=== PATIENT | female | born 1940 | race Caucasian/White ===

== ENCOUNTER 2025-07-23 07:58 | Emergency (ER) | payer MEDICARE, BC, SELFPAY ==
[2025-07-23 08:14] VITALS: BP 212/93; PULSE 97; RESP 17; TEMP 36.7; O2SAT 100; BMI 24.7
--- NOTE | 2025-07-23 08:16 | XR_ITS ---
Examination: CT abdomen and pelvis without contrast. Coronal 3-D reconstructions. Sagittal 2-D reconstructions. Date and time of exam: 07/23/2025 at 8:40 2:00 a.m. CTDI: vol (mGy): 6.21 DLP: (mGycm): 321 INDICATION: Lower abdominal and pelvic pain for the last 1 day Comparison study 12/28/2023 Technique: Axial images of the abdomen have been obtained, 3 mm slice thickness Intravenous contrast material has not been administered. Low dose protocols were performed. One or more of the following dose reduction techniques were used; automated exposure control, adjustment of the mA and/or KV according to patient size, use of iterative reconstruction technique. Findings: In the anterior base of the right lower lobe there is a very tiny 3 mm nodule noted, this is perfectly stable and unchanged since the prior CT and almost certainly is a benign finding. The remainder of the lower lobes appear clear. In the spine at L3-4 there is moderate disc space narrowing and vacuum phenomenon. On the axial images there is a diffuse circumferential disc bulge, this is most prominent posterolaterally on the left side. This appears to create 6 significant narrowing of the left neuroforamen at this level. There is also a moderate diffuse annular disc bulge at L4-5 with prominent DJD in the posterior facet joints. At L5-S1 there is very prominent DJD in the posterior facet joints, there is moderate disc space narrowing at there is a mild midline disc protrusion. Surgical clips are seen in the gallbladder fossa. There is moderate diffuse enlargement of the liver. Spleen appears all right, adrenal glands appear all right. The entire pancreas is significantly smaller than normal suggesting at least moderate pancreatic atrophy. There is a tiny 2 mm diameter calcification located in the region of the head of the pancreas. This is unchanged since the previous CT, its possible this could lie within the distal common bile duct. No significant abnormalities are seen in the retroperitoneum, CT appearance of both kidneys is essentially unremarkable. There is an extremely tiny umbilical hernia containing 1 extremely tiny loop of bowel with a small calcification within it. This is perfectly stable and unchanged since the last CT. There is moderate diverticulosis seen throughout the sigmoid colon The 4 cm long area of annular intramural thickening of the sigmoid colon seen on the prior study is no longer identified, has that related to a muscular contraction on the previous CT. Small bowel loops appear all right. The uterus appears to be absent. There is mild but definite DJD in the right hip joint. There is end-stage DJD in the left hip joint with [id number] contact, erosion of the acetabulum and flattening and erosion of the femoral head with multiple subchondral degenerative cysts in the femoral head. Again noted is a moderately prominent pericardial effusion unchanged since the prior CT IMPRESSION: 1. Very tiny 4 mm noncalcified nodule in the base of the right lower lobe is unchanged from the prior CT almost certainly benign 2 fairly prominent pericardial effusion is again seen and its stable and unchanged 3 there appears to be diffuse enlargement of the liver. I do not see definite fatty infiltration on today's CT exam. Ultrasound might be a little bit more sensitive for this. 4. Status post cholecystectomy, status post hysterectomy in the past 5: Diverticulosis throughout the sigmoid colon, in the area of annular soft tissue thickening in the mid-distal sigmoid colon on the previous study appears normal on today's exam. 6. There appears to be diffuse pancreatic atrophy unchanged. There is a tiny calcification in the region of the distal common bile duct or head of the pancreas, this is unchanged since the prior CT Next number multilevel DJD in the lumbosacral spine Next number major end-stage DJD in the right hip joint and this is unchanged since the previous CT
--- NOTE | 2025-07-23 08:17 | PD.EDRME ---
Rapid Medical Screening Exam E Arrival date/time: 07/23/25 07:58 85-year-old female presents to the emergency department for complaints of dysuria and pelvic pain Chief Complaint: Urogenital-Female Vital signs: Vital Signs Temperature 98.1 F 07/23/25 08:14 Pulse Rate 97 07/23/25 08:14 Respiratory Rate 17 07/23/25 08:14 Blood Pressure 212/93 H 07/23/25 08:14 Pulse Oximetry (%) 100 07/23/25 08:14 Oxygen Delivery Method Room Air 07/23/25 08:14 Vital signs reviewed by provider: Yes Exam: On exam patient appears to be in pain Clinical Impression: Lab work and imaging ordered
[2025-07-23 08:41] VITALS: PULSE 69
--- NOTE | 2025-07-23 08:44 | PD.EDFMALE ---
ED Female Urogenital RME/HPI General Chief complaint: Urogenital-Female Stated complaint: Painful urination since last night Time Seen by Provider: 07/23/25 08:39 Source: patient Arrival date/time: 07/23/25 07:58 Mode of arrival: ambulatory Limitations: no limitations RME / HPI Complaint: dysuria and UTI Onset (ago): day(s) Location: suprapubic Radiation: non-radiating Severity: moderate Severity scale (1-10): 5 Quality: dull and burning Duration: constant Relieving factors: none Exacerbating factors: none Urinary Symptoms: dysuria, urgency and frequency Sexual activity: no Associated symptoms: denies other symptoms RME / HPI Narrative: 07/23/25 07:58 85-year-old female presents to the emergency department for complaints of dysuria and pelvic pain Exam: On exam patient appears to be in pain Impression: Lab work and imaging ordered Related Data Home Medications ?Medication ?Instructions ?Recorded ?Confirmed estradiol 1 mg tablet 1 tab PO QDAY 04/16/22 08/27/23 hydrochlorothiazide 25 mg tablet 1 tab PO QDAY 04/16/22 08/27/23 levothyroxine 25 mcg tablet 1 tab PO QDAY 04/16/22 08/27/23 mirtazapine 15 mg tablet 1 tab PO HS 04/16/22 08/27/23 olmesartan 40 mg tablet 1 tab PO QDAY 04/16/22 08/27/23 Previous Rx's ?Medication ?Instructions ?Recorded pantoprazole 20 mg tablet,delayed 20 mg PO QDAY #20 tabs 08/27/23 release (Protonix) pantoprazole 40 mg tablet,delayed 40 mg PO QDAY #20 tabs 10/31/23 release (Protonix) pantoprazole 40 mg tablet,delayed 40 mg PO QDAY #20 tabs 12/28/23 release (Protonix) sennosides 8.6 mg-docusate sodium 1 tab-cap PO QDAY PRN constipation 12/28/23 50 mg tablet (Colace 2-In-1) #20 tabs Allergies Allergy/AdvReac Type Severity Reaction Status Date / Time No Known Allergies Allergy Verified 07/23/25 08:02 Review of Systems Review of Systems Systems Reviewed: All systems reviewed, normal except as documented Past Medical History Past Medical History NEUROLOGIC: Negative Neurological Disorders or Seizures CARDIAC: Positive Angina, Hypercholesterolemia, Edema and Hypertension; Negative Cardiac Disorders or Congestive Heart Failure RESPIRATORY: Positive Pneumonia; Negative Chronic Obstructive Pulmonary Disease (COPD) or Asthma GASTROINTESTINAL: Positive Gastrointestinal Disorders, Gall Bladder Disease and Diverticulosis GENITOURINARY: Positive Genitourinary Disorders; Negative Renal Disease REPRODUCTIVE: Positive Previous Pregnancies MUSCULOSKELETAL: Positive Musculoskeletal Disorders, Arthritis, Osteoporosis, Degenerative Disk Disease and Fractures ENDOCRINE: Positive Endocrine Disorders and Diabetes Mellitus Type 2; Negative Diabetes Mellitus Type 1 HEMATOLOGIC: Negative Blood Disorders or Sickle Cell Disease PSYCHO/SOCIAL: Positive Depression OTHER HISTORY: Positive Chicken Pox, Measles and Mumps; Negative Autoimmune Disease, Blood Transfusions, Blood Transfusion Reaction or Anesthesia Reactions Family History FAMILY HISTORY: Positive Family Respiratory Disorders, Family Cardiac Disorders and Family Cancer; Negative Family Psychiatric Problems, Family Gastrointestinal Problems, Family Surgery or Family Anesthesia Reaction Surgical History SURGICAL: Positive Joint Replacement, Open Reduction Internal Fixation and Hysterectomy Social History SMOKING STATUS: Never smoker SUBSTANCE USE: does not use ED Exam General Limitations: Present no limitations General appearance: Present alert and in no apparent distress Head Head exam: Present atraumatic Eye Eye exam: Present normal appearance, PERRL and EOMI ENT ENT exam: Present normal exam, normal oropharynx and mucous membranes moist Neck Neck exam: Present normal inspection, full ROM and trachea midline Chest Chest inspection: Present normal inspection and symmetric chest wall rise Respiratory Respiratory exam: Present normal lung sounds bilaterally Cardiovascular Cardiovascular exam: Present regular rate, normal rhythm and normal heart sounds Abdominal Exam Abdominal exam: Present soft, tenderness (SL TTP SUPRAPUBIC AREA) and normal bowel sounds Extremities Exam Extremities exam: Present normal inspection and full ROM Back Exam Back exam: Present normal inspection and full ROM Neurological Exam Neurological exam: Present alert, oriented X3 and CN II-XII intact Psychiatric Psychiatric exam: Present normal affect and normal mood Skin Skin exam: Present warm, dry, intact and normal color Course Quality Measures none Orders Category Date Time Status Surg Nurse NOW Care 07/23/25 08:41 Completed Continuous Pulse Oximetry NOW Care 07/23/25 08:41 Completed Insert IV NOW Care 07/23/25 08:[address] abdomen pelvis wo con Stat Exams 07/23/25 08:16 Completed CBC Stat Lab 07/23/25 08:30 Completed Comprehensive Metabolic Panel Stat Lab 07/23/25 08:30 Completed UA, C/S IF [Urinalysis, C/S if Indicated] Stat Lab 07/23/25 09:55 Completed Phenazopyridine HCl [Pyridium] Med 07/23/25 08:41 Discontinued 200 mg PO X1 ONE Sodium Chloride 0.9% 1000 ml [Ns] 1,000 ml Med 07/23/25 08:41 Discontinued IV 999 mls/hr Sodium Chloride 0.9% 1000 ml [Ns] 1,000 ml Med 07/23/25 10:31 Discontinued IV 999 mls/hr [id number] [Rocephin] 2 gm Med 07/23/25 08:41 Discontinued SODIUM CHLORIDE 0.9% (Popper) [Ns 0.9% (P)] 50 ml IV X1 Vital Signs Vital signs: Vital Signs Temperature 98.1 F 07/23/25 08:14 Pulse Rate 97 07/23/25 08:14 Respiratory Rate 17 07/23/25 08:14 Blood Pressure 212/93 H 07/23/25 08:14 Pulse Oximetry (%) 100 07/23/25 08:14 Oxygen Delivery Method Room Air 07/23/25 08:14 Urogenital - Female Patient data External records reviewed:: [facility] previous records Clinical information provided by:: patient Social determinants that could affect healthcare access:: none Patient has the following chronic illnesses:: Pericardial effusion which is chronic, DJD How is presenting disease/condition affected by chronic disease/condition?: uneffected by Evaluation data The following diagnostics were reviewed and interpreted by me:: lab results and radiology exam(s) Lab and/or radiology exams considered but not ordered:: UA was negative for acute infection. CT scan of the abdomen and pelvis showed a chronic pericardial effusion, diverticulosis and DJD but no acute changes from previously. Interpretation Summary: N/A Medications / Prescriptions Medications or Prescriptions considered but not ordered:: AMOXACILLIN Medication administrations:: Medication Administration History Discontinued Medications Sodium Chloride (Ns) 1,000 mls @ 999 mls/hr IV .Q1H1M ONE Stop: 07/23/25 09:41 Last Infusion: 07/23/25 13:19 Dose: Infused Documented By: Admin: 07/23/25 09:09 Dose: 999 mls/hr Documented By: ANJELICA Ceftriaxone Sodium 2 gm/ (Sodium Chloride) 50 mls @ 100 mls/hr IV X1 ONE Stop: 07/23/25 09:10 Last Infusion: 07/23/25 10:41 Dose: Infused Documented By: Admin: 07/23/25 09:08 Dose: 100 mls/hr Documented By: ANJELICA Sodium Chloride (Ns) 1,000 mls @ 999 mls/hr IV .Q1H1M ONE Stop: 07/23/25 11:31 Last Infusion: 07/23/25 13:19 Dose: Infused Documented By: Admin: 07/23/25 10:44 Dose: 999 mls/hr Documented By: ANJELICA Phenazopyridine HCl (Phenazopyridine Hcl 100 Mg Tablet) 200 mg PO X1 ONE Stop: 07/23/25 08:42 Last Admin: 07/23/25 09:08 Dose: 200 mg Documented By: ANJELICA ABOVE Consultations Consultation(s) initiated? (list below): No Diagnosis Urogenital Female Differential Diagnosis: urinary tract infection, bacterial vaginosis, trichomoniasis, cervicitis, ovarian cyst, ruptured ovarian cyst, cystitis and dysmenorrhea Most likely diagnosis given after review of the tests above:: Differential diagnosis is UTI, atrophic vaginitis, diverticulitis. Admission Indicated Admission indicated?: not indicated Admission Request Was there a request for admission?: No Disposition Plan Disposition Plan: Discharge Discharge Attestation Discharge Attestation: The patient and all family members were given an opportunity to ask questions and understood the discharge instructions. Discharge instructions specifically effects, indications for sooner follow up or return to the emergency department, and the expected course of current diagnosis. Patient condition: Stable Discharge Plan Plan Patient Disposition: HOME (Self Care) Patient condition on transfer: Stable Prescriptions/Referrals Prescriptions/Med Rec: No Action levothyroxine 25 mcg tablet 1 tab PO QDAY Patient Comments: GENERIC FOR SYNTHROID. TAKE 1 TABLET BY MOUTH EVERY DAY estradiol 1 mg tablet 1 tab PO QDAY Patient Comments: TAKE 1 TABLET BY MOUTH EVERY DAY hydrochlorothiazide 25 mg tablet 1 tab PO QDAY Patient Comments: TAKE 1 TABLET BY MOUTH EVERY DAY mirtazapine 15 mg tablet 1 tab PO HS Patient Comments: GENERIC FOR REMERON. TAKE 1 TABLET BY MOUTH AT BEDTIME olmesartan 40 mg tablet 1 tab PO QDAY Patient Comments: TAKE 1 TABLET BY MOUTH EVERY DAY pantoprazole [Protonix] 20 mg tablet,delayed release (DR/EC) 20 mg PO QDAY Qty: 20 0RF pantoprazole [Protonix] 40 mg tablet,delayed release (DR/EC) 40 mg PO QDAY Qty: 20 0RF pantoprazole [Protonix] 40 mg tablet,delayed release (DR/EC) 40 mg PO QDAY Qty: 20 0RF sennosides-docusate sodium [Colace 2-In-1] 8.6-50 mg tablet 1 tab-cap PO QDAY PRN (Reason: constipation) Qty: 20 0RF Referrals: No Primary/Family,Physician [Primary Care Provider] - In 1 week Problem List Clinical Impression: Abdominal pain, Chronic pericardial effusion, Diverticulosis, DJD (degenerative joint disease) Patient/Caregiver Discharge Instructions Discharge Activity: activity as tolerated Education Materials: Abdominal Pain Additional Instructions: Follow-up with your doctor in 1 to 2 days. There was no evidence of a urinary tract infection although I did give you IV antibiotics. If the pain increases further and you are concerned please return to the emergency department for reevaluation Print Language: Finnish Stand Alone Forms: Mamie Award Info., Patient Portal Info Letter
[2025-07-23 08:49] LABS: Basophils # (Auto) 0.0 Thou/mm3 (0.0-0.2); Basophils % (Auto) 0 % (0-2.5); Eosinophils # (Auto) 0.1 Thou/mm3 (0.0-0.5); Eosinophils % (Auto) 1 % (0-10); Hematocrit 40.7 % (36.0-46.0); Hemoglobin 13.9 g/dL (12.0-16.0); Immature Granulocytes Auto 0.02 Thou/mm3 (0.00-0.00); Lymphocytes # (Auto) 1.5 Thou/mm3 (1.0-4.8); Lymphocytes % (Auto) 21 % (10-50); Mean Corpuscular HGB Conc 34.2 g/dl (31.0-37.0); Mean Corpuscular Hemoglobin 27.9 pg (25.0-35.0); Mean Corpuscular Volume 82 fL (80-100); Monocytes # (Auto) 0.7 Thou/mm3 (0.0-0.8); Monocytes % (Auto) 10 % (0-12); Neutrophils # (Auto) 4.6 Thou/mm3 (1.8-7.7); Neutrophils % (Auto) 67 % (37-80); Nucleated Red Blood Cell # 0.00 Thou/mm3 (0.00-0.00); Nucleated Red Blood Cell % 0 /100 WBC (0); Platelet Count 257 Thou/mm3 (140-440); RDW Standard Deviation 37.8 fL (36.4-46.3); Red Blood Count 4.99 Miln/mm3 (4.00-5.20); White Blood Count 6.8 Thou/mm3 (3.6-11.0)
[2025-07-23 09:05] LABS: Alanine Aminotransferase 11 U/L (10-49); Albumin, Serum 4.7 gm/dL (3.4-4.8); Albumin/Globulin Ratio 1.3 (1.2-2.2); Alkaline Phosphatase 78 U/L (46-116); Anion Gap 11 (7-16); Aspartate Amino Transferase 21 U/L (0-34); BUN/Creatinine Ratio 33 Ratio (12-20); Bilirubin,Total 0.3 mg/dL (0.3-1.2); Blood Urea Nitrogen 59 mg/dL (9-23); Calcium 9.6 mg/dL (8.3-10.6); Calcium (Corrected) 9.6 mg/dL (8.5-10.1); Carbon Dioxide 32.6 mMol/L (20.0-31.0); Chloride 82 mMol/L (98-107); Creatinine (Component) 1.8 mg/dL (0.6-1.3); Estimated Creatinine Clearance 18.4 mL/min (>60); Globulin 3.5 gm/dL (2.3-3.5); Glucose 274 mg/dL (74-106); Osmolality,Calculated 279 (275-295); Potassium 3.6 mMol/L (3.4-5.1); Sodium 126 mMol/L (136-145); Total Protein 8.2 gm/dL (5.7-8.2); eGFR 27 See Note
[2025-07-23] MEDS: PHENAZOPYRIDINE HCL 100 MG TABLET 200 MG PO (09:08)
[2025-07-23] MEDS: cefTRIAXone 2 GM in SODIUM CHLORIDE 0.9% (Popper) 50 ML IV (09:08)
[2025-07-23] MEDS: SODIUM CHLORIDE 0.9% 1000 ML 1,000 ML 999 ML IV ×2 (09:09→10:44)
[2025-07-23 09:15] VITALS: BP 160/78; PULSE 73; RESP 16; TEMP 37.2; O2SAT 97
[2025-07-23 10:08] LABS: Collection Type, Urine Clean Catch
[2025-07-23 10:24] LABS: Bacteria,Urine Rare; Bilirubin,Urine Negative (Negative); Blood,Urine Negative (Negative); Clarity,Urine Clear (Clear/Hazy); Color,Urine Lt-Yellow (Lt Yel-Yel); Culture Indicated,Urine Not Indicated; Glucose, Urine 3+ (Negative); Ketones,Urine Negative (Negative); Leukocyte Esterase,Urine Negative (Negative); Nitrite,Urine Negative (Negative); PH,Urine 7.0 (5.0-7.0); Protein,Urine Negative (Neg - Trace); RBC,Urine 2 /hpf (0-3); Specific Gravity,Urine 1.009 (1.001-1.035); Squamous Epithelial Cell,Urine 3 /hpf (0-5); Urobilinogen,Urine Negative mg/dL (0.0-1.0); WBC,Urine 3 /hpf (0-5)
== END 2025-07-23 13:21 | disposition home or self-care (01) ==
PROVIDERS: Nurse Practitioner Primary Care; Emergency Provider Family Medicine
DX: K57.90 Diverticulosis of intestine, part unspecified, without perforation or abscess without bleeding (principal); M47.817 Spondylosis without myelopathy or radiculopathy, lumbosacral region; I31.39 Other pericardial effusion (noninflammatory)
CPT/HCPCS: 36415; 74176; 80053; 81001; 85025; 96361; 96365; 96366; 99284; J0696; J7030; J7050; A9270